=== PATIENT | male | born 1935 | race Caucasian/White ===

== ENCOUNTER 2018-01-09 09:06 | Outpatient (CLI) | payer OTHER | END 2018-01-09 09:16 | disposition home or self-care (01) | LOC: SONOGRAMA 09:06 | DX: N40.0 Benign prostatic hyperplasia without lower urinary tract symptoms (principal) ==

== ENCOUNTER 2019-12-19 10:26 | Outpatient (CLI) | payer OTHER | END 2019-12-19 11:11 | disposition home or self-care (01) | LOC: NUCLEAR 10:26 | DX: I73.9 Peripheral vascular disease, unspecified (principal); M25.571 Pain in right ankle and joints of right foot; L03.115 Cellulitis of right lower limb ==

== ENCOUNTER 2019-12-20 12:54 | Outpatient (CLI) | payer OTHER | END 2019-12-20 13:08 | disposition home or self-care (01) | LOC: NUCLEAR 12:54 | DX: I87.2 Venous insufficiency (chronic) (peripheral) (principal); M25.571 Pain in right ankle and joints of right foot; L03.115 Cellulitis of right lower limb ==

== ENCOUNTER 2024-06-09 14:05 | Outpatient (CLI) | payer OTHER | END 2024-06-09 14:21 | disposition home or self-care (01) | LOC: RAD 14:05 | DX: S49.91XA Unspecified injury of right shoulder and upper arm, initial encounter (principal); W01.0XXA Fall on same level from slipping, tripping and stumbling without subsequent striking against object, initial encounter ==